=== PATIENT | female | born 1990 | race African-American/Black ===

== ENCOUNTER 2021-10-10 16:07 | Emergency (ER) | payer MEDICAID, OTHER ==
[~2021-10-10] VITALS: Ht 165.1 cm; Wt 82.0 kg
[2021-10-10] MEDS ORDERED: MORPHINE SULFATE 4 MG/ML CPJ (NOT FOR IM USE) IV STA ×2 (16:40→19:50)
[2021-10-10] MEDS ORDERED: ONDANSETRON HCL 4MG/2ML INJ IV STA ×2 (16:40→19:50)
[2021-10-10] MEDS ORDERED: LEVOFLOXACIN 750MG PREMIX 150 ML IV ONE (16:45)
[2021-10-10] MEDS ORDERED: SODIUM CHLORIDE 0.9% 1000ML BAG (SEPSIS BOLUS) IV ONE (16:45)
[2021-10-10] MEDS ORDERED: ACETAMINOPHEN 325MG TABLET PO ONE (16:45)
[2021-10-10 17:40] LABS: CHLORIDE 103 mEq/L (98-107); CLARITY URINE TURBID (CLEAR); COLOR URINE YELLOW (YELLOW); HCG SCREEN NEGATIVE; KETONES URINE 1+ (NEGATIVE); LEUKOCYTE ESTERASE URINE 3+ (NEGATIVE); NITRITE URINE NEGATIVE (NEGATIVE); OCCULT BLOOD URINE 1+ (NEGATIVE); PH URINE 6.5 (4.5-8.0); PROTEIN URINE 2+ (NEGATIVE)
[2021-10-10 18:00] LABS: HEMATOCRIT. 35.5 % (36.0-48.0); HEMOGLOBIN. 11.7 g/dL (12.0-16.0); MEAN CORPUSCULAR HEMOGLOBIN 25.8 pg (28.0-32.0); MEAN CORPUSCULAR VOLUME 78.4 fL (81.0-99.0); MEAN PLATELET VOLUME 7.5 fl (7.4-10.4); PLATELET 268 x1000/uL (130-400); RED BLOOD CELL COUNT 4.53 mill/uL (4.2-5.4); RED CELL DISTRIBUTION WIDTH 13.5 % (11.6-14.6)
[2021-10-10 18:20] LABS: PLATELET ESTIMATE NORMAL
[2021-10-10] MEDS ORDERED: ACETAMINOPHEN 500MG TABLET PO NR (19:45)
[2021-10-10 23:00] VITALS: BP 92/60
== END 2021-10-10 23:30 | disposition short-term general hospital (02) ==
LOC: ER 16:07
DX: N10 Acute pyelonephritis (principal); Z20.822 Contact with and (suspected) exposure to COVID-19
CPT/HCPCS: 36415; 71045; 74176; 80053; 81003; 81025; 83605; 83690; 84145; 84703; 85025; 87040; 87077; 87086; 87186; 87426; 93005; 96361; 96365; 96375; 96376; 99285; C9803; J1956; J2270; J2405; J7030